=== PATIENT | female | born 1980 | race Caucasian/White ===

== ENCOUNTER → 2016-06-21 | Outpatient (CLI) | payer BC ==
[2016-06-21 09:38] LABS: MEAN CORPUSCULAR HEMOGLOBIN 30.1 pg (27.0-33.0); MEAN CORPUSCULAR HGB CONC 33.6 g/dl (32.0-36.5); MEAN CORPUSCULAR VOLUME 89.7 fl (80.0-96.0); RED CELL DISTRIBUTION WIDTH 12.4 % (11.5-14.5); WHITE BLOOD COUNT 3.6 K/mm3 (4.0-10.0)
[2016-06-21 09:53] LABS: ALBUMIN 3.3 GM/DL (3.2-5.2); ALBUMIN/GLOBULIN RATIO 1.22 (1.00-1.93); ALKALINE PHOSPHATASE 79 U/L (45-117); ALT/SGPT 21 U/L (12-78); ANION GAP 7 MEQ/L (8-16); AST/SGOT 14 U/L (15-37); BILIRUBIN,TOTAL 0.3 MG/DL (0.2-1.0); BLOOD UREA NITROGEN 13 MG/DL (7-18); CALCIUM LEVEL 8.1 MG/DL (8.5-10.1); CARBON DIOXIDE LEVEL 28 MEQ/L (21-32); CHLORIDE LEVEL 105 MEQ/L (98-107); CHOLESTEROL LEVEL 183 MG/DL (<200); CREATININE FOR GFR 0.69 MG/DL (0.55-1.02); GLOMERULAR FILTRATION RATE > 60.0 (>60); GLUCOSE, FASTING 87 MG/DL (70-105); POTASSIUM SERUM 4.8 MEQ/L (3.5-5.1); SODIUM LEVEL 140 MEQ/L (136-145); TRIGLYCERIDES LEVEL 42 MG/DL (<150)
== END ==
LOC: M WUC 08:16
PROVIDERS: ATTEND Nurse Practitioner Family
DX: Z00.00 Encounter for general adult medical examination without abnormal findings (principal)

== ENCOUNTER 2017-01-26 19:34 | Emergency (ER) | payer BC ==
[~2017-01-26] VITALS: Ht 182.9 cm; Wt 86.4 kg
[2017-01-26] MEDS ORDERED: MULTLIQ7 PO (19:45)
[2017-01-26] MEDS ORDERED: DEBL1TAB (19:45)
[2017-01-26] MEDS ORDERED: NS 1,000 ML IV ONE (20:30)
[2017-01-26 20:33] LABS: BASO # 0.1 10^3/uL (0.0-0.2); BASO % 0.7 % (0.0-1.0); EOS # 0.1 10^3/uL (0.0-0.50); EOS % 1.2 % (0.0-3.0); IMMATURE GRANULOCYTE % 0.1 % (0-0); LYMPH # 1.3 10^3/uL (1.5-4.5); LYMPH % 19.1 % (24.0-44.0); MEAN CORPUSCULAR HEMOGLOBIN 29.9 pg (27.0-33.0); MEAN CORPUSCULAR VOLUME 85.6 fl (80.0-96.0); MONO # 0.7 10^3/uL (0.0-0.8); MONO % 10.9 % (0.0-5.0); NEUTROPHILS # 4.6 10^3/uL (1.8-7.7); PLATELET COUNT, AUTOMATED 221 10^3/uL (150-450); WHITE BLOOD COUNT 6.7 10^3/uL (4.0-10.0)
[2017-01-26 20:42] LABS: CONTROL LINE HCG INT CTR LINE PRESENT
[2017-01-26 20:54] LABS: ALBUMIN 3.6 GM/DL (3.2-5.2); ALBUMIN/GLOBULIN RATIO 0.97 (1.00-1.93); ALKALINE PHOSPHATASE 91 U/L (45-117); ALT/SGPT 27 U/L (12-78); ANION GAP 9 MEQ/L (8-16); AST/SGOT 15 U/L (7-37); BILIRUBIN,DIRECT < 0.1 MG/DL (0.0-0.2); BILIRUBIN,TOTAL 0.4 MG/DL (0.2-1.0); BLOOD UREA NITROGEN 13 MG/DL (7-18); CALCIUM LEVEL 8.7 MG/DL (8.5-10.1); CARBON DIOXIDE LEVEL 23 MEQ/L (21-32); CHLORIDE LEVEL 107 MEQ/L (98-107); CREATININE FOR GFR 0.72 MG/DL (0.55-1.02); FREE T4 1.14 NG/DL (0.76-1.46); GLOMERULAR FILTRATION RATE > 60.0 (>60); GLUCOSE, FASTING 93 MG/DL (70-105); POTASSIUM SERUM 3.5 MEQ/L (3.5-5.1); SODIUM LEVEL 139 MEQ/L (136-145); TOTAL PROTEIN 7.3 GM/DL (6.4-8.2)
[2017-01-26] MEDS ORDERED: ISOVUE-370 76% 100ML VIAL (Q9967) As Ordered ONE (21:09)
--- NOTE | 2017-01-26 21:40 | REPUSA ---
CT angiogram of the chest Clinical statement: Chest pain and shortness of breath. Technique: Multiple axial CT images were obtained from the thoracic inlet through the upper abdomen a fter a bolus administration of nonionic intravenous contrast. Coronal and sagittal reconstructions we re also obtained. No comparison is available. Findings: The pulmonary arteries are well-opacified with contrast, with no intraluminal filling defec ts to suggest embolism. The thoracic aorta is unremarkable. Thyroid gland is within normal limits. Th ere is no thoracic lymphadenopathy. There are no pericardial or pleural effusions. There is consolida tion of the left lower lobe. Limited imaging of the upper abdomen is unremarkable. There are no suspi cious osseous lesions. Impression: 1. No evidence of pulmonary embolism. 2. Left lower lobe pneumonia.
[2017-01-26] MEDS ORDERED: AZITHROMYCIN 250 MG TAB PO ONE (21:45)
[2017-01-26] MEDS ORDERED: CEFTRIAXONE SOD 1 GM in APPROPRIATE DILUENT 1 EA IV ONE (21:45)
[2017-01-26] MEDS ORDERED: AZIT-12 PO (22:20)
[2017-01-27 00:09] VITALS: BP 116/79
--- NOTE | 2017-01-27 07:22 | ECGEPIP ---
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
== END 2017-01-27 00:09 | disposition home or self-care (01) ==
LOC: M ED 19:34
DX: J18.9 Pneumonia, unspecified organism (principal); Z88.2 Allergy status to sulfonamides; Z79.899 Other long term (current) drug therapy; Z79.3 Long term (current) use of hormonal contraceptives; Z87.891 Personal history of nicotine dependence
CPT/HCPCS: 71275; 80048; 80076; 82550; 82553; 83880; 84439; 84443; 84703; 85025; 87040; 93005; 93041; 94760; 96374; 99284; Q9967

== ENCOUNTER → 2017-02-07 | Outpatient (CLI) | payer BC ==
[~2017-02-07] MED LIST: AZIT-12 PO; DEBL1TAB; MULTLIQ7 PO
--- NOTE | 2017-02-07 20:11 | REP ---
Clinical: Dyspnea. Pneumonia . Comparison: 01/22/2013 . Technique: PA and lateral. Findings: The mediastinum and cardiac silhouette are normal. The lung kelley are clear and without acute consolidation, effusion, or pneumothorax. The skeletal structures are intact and normal. Impression: 1. No acute cardiopulmonary process. 2. Left lower lobe pneumonia identified on chest CT dated 01/26/2017 has resolved. Signed by Sesar Gutierrez MD 02/07/2017 08:02 P
== END ==
LOC: M RAD 19:46
PROVIDERS: ATTEND Physician Assistant Medical
DX: J18.1 Lobar pneumonia, unspecified organism (principal); R07.9 Chest pain, unspecified

== ENCOUNTER → 2017-02-13 | Outpatient (REF) | payer BC | LOC: M LAB REF 16:50 | DX: Z30.430 Encounter for insertion of intrauterine contraceptive device (principal) | CPT/HCPCS: 87591 ==

== ENCOUNTER 2017-04-02 09:34 | Outpatient (REF) | payer BC ==
[2017-04-05 14:10] LABS: HPV HYBRID CAPTURE II Negative (Negative)
== END 2017-04-03 ==
LOC: M LAB REF 09:34
DX: Z12.4 Encounter for screening for malignant neoplasm of cervix (principal)
CPT/HCPCS: G0123

== ENCOUNTER → 2017-09-05 | Outpatient (CLI) | payer BC, MEDICAID, SELFPAY | LOC: M RAD 14:40 | DX: Z80.3 Family history of malignant neoplasm of breast (principal); N64.4 Mastodynia | CPT/HCPCS: 77066 ==

== ENCOUNTER → 2017-11-07 | Outpatient (CLI) | payer BC ==
[2017-11-07 09:07] LABS: HEMATOCRIT 37.1 % (36.0-47.0); HEMOGLOBIN 12.9 g/dl (12.0-15.5); MEAN CORPUSCULAR HEMOGLOBIN 31.5 pg (27.0-33.0); MEAN CORPUSCULAR HGB CONC 34.8 g/dl (32.0-36.5); MEAN CORPUSCULAR VOLUME 90.5 fl (80.0-96.0); PLATELET COUNT, AUTOMATED 208 10^3/uL (150-450); RED CELL DISTRIBUTION WIDTH 12.3 % (11.5-14.5); WHITE BLOOD COUNT 4.4 10^3/uL (4.0-10.0)
[2017-11-07 09:42] LABS: CONTROL LINE HCG INT CTR LINE PRESENT; HCG, SERUM QUALITATIVE NEGATIVE (NEGATIVE)
[2017-11-07 10:00] LABS: ALBUMIN 3.9 GM/DL (3.2-5.2); ALBUMIN/GLOBULIN RATIO 1.39 (1.00-1.93); ALKALINE PHOSPHATASE 95 U/L (45-117); ALT/SGPT 20 U/L (12-78); ANION GAP 7 MEQ/L (8-16); AST/SGOT 10 U/L (7-37); BILIRUBIN,TOTAL 0.6 MG/DL (0.2-1.0); BLOOD UREA NITROGEN 9 MG/DL (7-18); CALCIUM LEVEL 8.6 MG/DL (8.5-10.1); CARBON DIOXIDE LEVEL 27 MEQ/L (21-32); CHLORIDE LEVEL 108 MEQ/L (98-107); CHOLESTEROL LEVEL 150 MG/DL (<200); CHOLESTEROL RISK RATIO 2.238 (<5); CREATININE FOR GFR 0.65 MG/DL (0.55-1.30); GLOMERULAR FILTRATION RATE > 60.0 (>60); GLUCOSE, FASTING 82 MG/DL (70-100); HDL CHOLESTEROL 67 MG/DL (>40); LDL CHOLESTEROL 71 MG/DL (<100); NON-HDL-C 83 MG/DL; POTASSIUM SERUM 4.4 MEQ/L (3.5-5.1); SODIUM LEVEL 142 MEQ/L (136-145); TOTAL PROTEIN 6.7 GM/DL (6.4-8.2); TRIGLYCERIDES LEVEL 59 MG/DL (<150)
== END ==
LOC: M LAB 08:33
DX: R53.83 Other fatigue (principal)
CPT/HCPCS: 84443

== ENCOUNTER → 2018-07-15 | Outpatient (CLI) | payer BC ==
[2018-07-15 12:27] LABS: BASO # 0.1 10^3/uL (0.0-0.2); BASO % 1.6 % (0.0-1.0); EOS # 0.1 10^3/uL (0.0-0.50); EOS % 1.8 % (0.0-3.0); HEMATOCRIT 39.7 % (36.0-47.0); HEMOGLOBIN 13.4 g/dl (12.0-15.5); LYMPH # 1.4 10^3/uL (1.5-4.5); LYMPH % 34.9 % (24.0-44.0); MEAN CORPUSCULAR HEMOGLOBIN 31.3 pg (27.0-33.0); MEAN CORPUSCULAR HGB CONC 33.8 g/dl (32.0-36.5); MEAN CORPUSCULAR VOLUME 92.8 fl (80.0-96.0); MONO # 0.4 10^3/uL (0.0-0.8); MONO % 9.6 % (0.0-5.0); NEUTROPHILS % 51.8 % (36.0-66.0); PLATELET COUNT, AUTOMATED 202 10^3/uL (150-450); RED BLOOD COUNT 4.28 10^6/uL (4.00-5.40); WHITE BLOOD COUNT 3.9 10^3/uL (4.0-10.0)
[2018-07-15 13:00] LABS: ERYTHROCYTE SEDIMENTATION RATE 6 mm/hr (0-20)
[2018-07-15 13:01] LABS: ALBUMIN 3.7 GM/DL (3.2-5.2); ALT/SGPT 20 U/L (12-78); BILIRUBIN,DIRECT 0.1 MG/DL (0.0-0.2); BILIRUBIN,TOTAL 0.3 MG/DL (0.2-1.0); RHEUMATOID FACTOR QUANT < 10.0 IU/ML (<15.0); TOTAL PROTEIN 6.4 GM/DL (6.4-8.2)
[2018-07-16 14:19] LABS: ANTINUCLEAR ANTIBODIES DIRECT Negative (Negative); SJOGREN'S ANTI SS-A <0.2 AI (0.0-0.9); SJOGREN'S ANTI SS-B <0.2 AI (0.0-0.9)
== END ==
LOC: M LAB 11:42
PROVIDERS: ATTEND Nurse Practitioner
DX: R21 Rash and other nonspecific skin eruption (principal)

== ENCOUNTER 2019-01-08 12:39 | Day surgery (SDC) | payer BC ==
[~2019-01-08] VITALS: Ht 182.9 cm; Wt 88.4 kg
[~2019-01-08 12:39] MED LIST changes: +KETOROLAC 60 MG/2 ML VIAL (J1885) As Ordered ONE; +LIDOCAINE 2% INJ 100 MG/5 ML SDV (FOR ANES.) As Ordered ONE; +LR 1,000 ML IV ONE; +MIDAZOLAM INJ 2 MG/2 ML VIAL (J2250) As Ordered ONE; +MULTCAP PO; +ONDANSETRON 4MG/2ML VIAL (J2405) As Ordered ONE; +PROPOFOL 200 MG/20 ML VIAL As Ordered ONE; +ROCURONIUM BROMIDE 50 MG/5 ML VIAL As Ordered ONE; +SERT-138 PO; +SUGAMMADEX SODIUM 500 MG/5 ML VIAL (BRIDION) As Ordered ONE; +dexameTHASONE 4 MG/ML 1ML VIAL (J1100) As Ordered ONE; +fentaNYL 100 MCG/2 ML INJECTION (J3010) As Ordered ONE
[2019-01-08 13:46] LABS: HEMATOCRIT 42.1 % (36.0-47.0); HEMOGLOBIN 13.8 g/dl (12.0-15.5); MEAN CORPUSCULAR HEMOGLOBIN 30.7 pg (27.0-33.0); MEAN CORPUSCULAR HGB CONC 32.8 g/dl (32.0-36.5); MEAN CORPUSCULAR VOLUME 93.6 fl (80.0-96.0); PLATELET COUNT, AUTOMATED 213 10^3/uL (150-450); WHITE BLOOD COUNT 5.1 10^3/uL (4.0-10.0)
[2019-01-08] MEDS ORDERED: BUPIVACAINE HCL 0.25% 30 ML VIAL As Ordered ONE (14:08)
[2019-01-08] MEDS ORDERED: OXYC1TAB23 PO (14:13)
[2019-01-08] MEDS ORDERED: fentaNYL 100 MCG/2 ML INJECTION (J3010) As Ordered ONE (14:47)
[2019-01-08] MEDS ORDERED: LR 1,000 ML IV SCH ×2 (15:30→16:30)
[2019-01-08] MEDS ORDERED: PERCOCET 5MG/325MG TAB PO PRN ×2 (15:30→16:30)
[2019-01-08] MEDS ORDERED: METOCLOPRAMIDE INJ 10MG/2ML VIAL (J2765) IV PRN (15:30)
[2019-01-08] MEDS ORDERED: ONDANSETRON 4MG/2ML VIAL (J2405) IV PRN (15:30)
[2019-01-08] MEDS ORDERED: fentaNYL 100 MCG/2 ML INJECTION (J3010) IV PRN (15:30)
[2019-01-08 16:40] VITALS: BP 127/69
--- NOTE | 2019-01-11 16:11 | RO ---
DATE OF OPERATION: 01/08/2019 PREOPERATIVE DIAGNOSIS: Undesired fertility. POSTOPERATIVE DIAGNOSIS: Undesired fertility. PROCEDURE: Laparoscopic bilateral salpingectomy. 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 ESTIMATED BLOOD LOSS: Minimal. URINE OUTPUT: 25 mL. FINDINGS: Normal pelvis including the uterus, fallopian tubes and ovaries. Normal upper abdomen. OPERATIVE SUMMARY: The patient was taken to the operating room where general endotracheal anesthesia was induced. She was prepped and draped in the sterile fashion in the dorsal lithotomy position. The bladder was emptied with a catheter. A sponge stick was placed in the vagina to use as a manipulator. A periumbilical incision was made with the scalpel. A Veress needle was placed through this incision while tenting upon the skin of the abdomen. Intraabdominal location of the Veress needle was assessed with the use of a saline filled syringe. A pneumoperitoneum was created. The Veress needle was removed. A 5 mm trocar using Visiport was inserted through this incision. A 5 and 8 mm suprapubic port respectively were placed under direct visualization. Grasping instruments were used to elevate each fallopian tube. A LigaSure device was used to coagulate and incise broad ligament attachments to the fallopian tube. The fallopian tubes were amputated near their origin. Both tubes were removed through the suprapubic port. Pneumoperitoneum was released. All instruments were removed. Sponge, instrument, and needle counts were correct. The skin was closed with #4-0 Monocryl subcuticular sutures. The patient was extubated and went to the recovery room in stable condition.
== END 2019-01-08 16:45 | disposition home or self-care (01) ==
LOC: M SDC 12:39
PROVIDERS: ATTEND Specialist
DX: Z30.2 Encounter for sterilization (principal); F41.9 Anxiety disorder, unspecified; Z79.899 Other long term (current) drug therapy
CPT/HCPCS: 36415; 58661; 81025; 85027; 88302; J1100; J1885; J2250; J2405; J3010

== ENCOUNTER → 2019-04-27 | Outpatient (CLI) | payer BC ==
[~2019-04-27] MED LIST changes: -KETOROLAC 60 MG/2 ML VIAL (J1885) As Ordered ONE; -LIDOCAINE 2% INJ 100 MG/5 ML SDV (FOR ANES.) As Ordered ONE; -LR 1,000 ML IV ONE; -MIDAZOLAM INJ 2 MG/2 ML VIAL (J2250) As Ordered ONE; -ONDANSETRON 4MG/2ML VIAL (J2405) As Ordered ONE; +OXYC1TAB23 PO; -PROPOFOL 200 MG/20 ML VIAL As Ordered ONE; -ROCURONIUM BROMIDE 50 MG/5 ML VIAL As Ordered ONE; -SUGAMMADEX SODIUM 500 MG/5 ML VIAL (BRIDION) As Ordered ONE; -dexameTHASONE 4 MG/ML 1ML VIAL (J1100) As Ordered ONE; -fentaNYL 100 MCG/2 ML INJECTION (J3010) As Ordered ONE
[2019-04-27 12:47] LABS: HEMATOCRIT 42.7 % (36.0-47.0); HEMOGLOBIN 13.9 g/dl (12.0-15.5); MEAN CORPUSCULAR HEMOGLOBIN 30.1 pg (27.0-33.0); MEAN CORPUSCULAR HGB CONC 32.6 g/dl (32.0-36.5); MEAN CORPUSCULAR VOLUME 92.4 fl (80.0-96.0); PLATELET COUNT, AUTOMATED 241 10^3/uL (150-450); RED BLOOD COUNT 4.62 10^6/uL (4.00-5.40); WHITE BLOOD COUNT 4.3 10^3/uL (4.0-10.0)
[2019-04-27 13:03] LABS: ALT/SGPT 18 U/L (12-78); BILIRUBIN,TOTAL 0.6 MG/DL (0.2-1.0); BLOOD UREA NITROGEN 10 MG/DL (7-18); CARBON DIOXIDE LEVEL 29 MEQ/L (21-32); CHLORIDE LEVEL 107 MEQ/L (98-107); CREATININE FOR GFR 0.66 MG/DL (0.55-1.30); FOLATE 20.8 NG/ML; GLOMERULAR FILTRATION RATE > 60.0 (>60); GLUCOSE, FASTING 91 MG/DL (70-100); POTASSIUM SERUM 4.7 MEQ/L (3.5-5.1); SODIUM LEVEL 140 MEQ/L (136-145); TOTAL 25(OH) VITAMIN D 34.6 NG/ML (30.0-100.0); TOTAL PROTEIN 6.5 GM/DL (6.4-8.2); VITAMIN B12 LEVEL 896 PG/ML
== END ==
LOC: M WUC 10:01
PROVIDERS: ATTEND Family Medicine
DX: R53.83 Other fatigue (principal); Z78.9 Other specified health status

== ENCOUNTER → 2019-05-05 | Outpatient (REF) | payer BC ==
[2019-05-05 15:41] LABS: CHLAMYDIA DNA AMPLIFICATION NEGATIVE (NEGATIVE); GC DNA AMPLIFICATION NEGATIVE (NEGATIVE)
== END ==
LOC: M SFHCWAGY 13:01
PROVIDERS: ATTEND Specialist
DX: Z20.2 Contact with and (suspected) exposure to infections with a predominantly sexual mode of transmission (principal)
CPT/HCPCS: 87491; 87591; 87624; G0123

== ENCOUNTER → 2019-05-05 | Outpatient (CLI) | payer BC ==
--- NOTE | 2019-05-05 11:08 | REPMRS ---
Patient History The patient states she had a clinical breast exam in April 2019. Family history of breast cancer at age 38 in mother, breast cancer at age 80 in paternal grandmother. Took hormonal contraceptives for 16 years. 3D TOMOSYNTHESIS WAS PERFORMED. Digital Woman Screen Mammo: May 05, 2019 - Exam #: [id number] Bilateral CC and MLO view(s) were taken. Technologist: RT Maggy Prior study comparison: September 05, 2017, digital mammo diagnostic bilateral, performed at [facility]. October 02, 2015, bilateral digital mammo screening bilat, performed at [facility]. FINDINGS: The breast tissue is heterogeneously dense. This may lower the sensitivity of mammography. There has been no change in the appearance of the mammogram from the prior studies. There is a moderate amount of residual fibroglandular tissue which is fairly symmetric. There is no interval development of dominant mass, areas of architectural distortion, or clustered microcalcification typical of malignancy. Assessment: BI-RADS/ACR category 1 mammogram. Negative Mammogram. Recommendation Routine screening mammogram in 1 year (for women over age 40). This mammogram was interpreted with the aid of an FDA-approved computer-aided dectection system. THE LIFETIME RISK OF BREAST CANCER IS 27.0%, THEREFORE SUPPLEMENTAL SCREENING MRI OF THE BREASTS IS RECOMMENDED IN 6 MONTHS. Electronically Signed By: Neo Solo MD 05/05/19 [id number]
== END ==
LOC: M WHC 09:55
PROVIDERS: ATTEND Specialist
DX: Z12.31 Encounter for screening mammogram for malignant neoplasm of breast (principal)

== ENCOUNTER → 2020-05-09 | Outpatient (CLI) | payer BC ==
[2020-05-09 10:50] LABS: HEMATOCRIT 41.8 % (36.0-47.0); HEMOGLOBIN 13.8 g/dl (12.0-15.5); MEAN CORPUSCULAR HEMOGLOBIN 30.2 pg (27.0-33.0); MEAN CORPUSCULAR VOLUME 91.5 fl (80.0-96.0); PLATELET COUNT, AUTOMATED 222 10^3/uL (150-450); RED BLOOD COUNT 4.57 10^6/uL (4.00-5.40); WHITE BLOOD COUNT 4.5 10^3/uL (4.0-10.0)
[2020-05-09 11:37] LABS: ALBUMIN 3.9 GM/DL (3.2-5.2); ALT/SGPT 20 U/L (12-78); BILIRUBIN,TOTAL 0.3 MG/DL (0.2-1.0); BLOOD UREA NITROGEN 11 MG/DL (7-18); CARBON DIOXIDE LEVEL 30 MEQ/L (21-32); CHLORIDE LEVEL 108 MEQ/L (98-107); CHOLESTEROL LEVEL 195 MG/DL (<200); CHOLESTEROL RISK RATIO 2.532 (<5); CREATININE FOR GFR 0.68 MG/DL (0.55-1.30); FREE T3 3.8 PG/ML (2.2-4.0); FREE T4 1.09 NG/DL (0.76-1.46); GLOMERULAR FILTRATION RATE > 60.0 (>60); GLUCOSE, FASTING 92 MG/DL (70-100); HDL CHOLESTEROL 77 MG/DL (>40); LDL CHOLESTEROL 109 MG/DL (<100); NON-HDL-C 118 MG/DL; SODIUM LEVEL 140 MEQ/L (136-145); TOTAL 25(OH) VITAMIN D 37.3 NG/ML (30.0-100.0); TOTAL PROTEIN 6.5 GM/DL (6.4-8.2); TRIGLYCERIDES LEVEL 43 MG/DL (<150)
== END ==
LOC: M WUC 08:12
PROVIDERS: ATTEND Registered Nurse
DX: F32.9 Major depressive disorder, single episode, unspecified (principal)

== ENCOUNTER 2020-05-15 19:37 | Emergency (ER) | payer BC ==
[~2020-05-15] VITALS: Ht 182.9 cm; Wt 97.3 kg
[2020-05-15] MEDS ORDERED: SERT50TA29 (19:44)
--- NOTE | 2020-05-15 20:11 | ECGEPIP ---
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
[2020-05-15 20:20] LABS: BASO # 0.1 10^3/uL (0.0-0.2); BASO % 0.6 % (0.0-1.0); EOS # 0.1 10^3/uL (0.0-0.5); HEMATOCRIT 41.5 % (36.0-47.0); HEMOGLOBIN 14.1 g/dl (12.0-15.5); LYMPH # 2.2 10^3/uL (1.5-5.0); LYMPH % 25.7 % (24.0-44.0); MEAN CORPUSCULAR HEMOGLOBIN 30.3 pg (27.0-33.0); MEAN CORPUSCULAR VOLUME 89.2 fl (80.0-96.0); MONO # 0.6 10^3/uL (0.0-0.8); MONO % 6.5 % (2.0-8.0); NEUTROPHILS # 5.8 10^3/uL (1.5-8.5); NEUTROPHILS % 65.9 % (36.0-66.0); PLATELET COUNT, AUTOMATED 236 10^3/uL (150-450); RED BLOOD COUNT 4.65 10^6/uL (4.00-5.40); WHITE BLOOD COUNT 8.7 10^3/uL (4.0-10.0)
--- NOTE | 2020-05-15 20:22 | REPVR ---
PROCEDURE INFORMATION: Exam: XR Chest Exam date and time: 05/15/2020 8:04 PM Age: 40 years old Clinical indication: Chest pain; Type not specified TECHNIQUE: Imaging protocol: XR of the chest Views: 2 views. COMPARISON: CR Chest, 2 view PA, Lat 02/07/2017 7:57 PM FINDINGS: Lungs: Unremarkable. No consolidation. Pleural spaces: Unremarkable. No pleural effusion. No pneumothorax. Heart/Mediastinum: Unremarkable. No cardiomegaly. Bones/joints: Unremarkable. IMPRESSION: No acute findings. Electronically signed by: Edward Lozano On 05/15/2020 20:22:23 PM
[2020-05-15 20:45] LABS: BLOOD UREA NITROGEN 14 MG/DL (7-18); CARBON DIOXIDE LEVEL 30 MEQ/L (21-32); CHLORIDE LEVEL 108 MEQ/L (98-107); CK-MB VALUE MASS < 1.0 NG/ML (<3.6); CPK CREATINE PHOSPHOKINASE 84 U/L (26-192); CREATININE FOR GFR 0.64 MG/DL (0.55-1.30); GLOMERULAR FILTRATION RATE > 60.0 (>60); GLUCOSE, FASTING 114 MG/DL (70-100); MB/CK RELATIVE INDEX 1.19 (< OR =4); POTASSIUM SERUM 3.9 MEQ/L (3.5-5.1); SODIUM LEVEL 142 MEQ/L (136-145); TROPONIN I < 0.02 NG/ML (< 0.10)
[2020-05-16 02:07] VITALS: BP 115/78
[2020-05-16 02:08] LABS: CK-MB VALUE MASS < 1.0 NG/ML (<3.6); CPK CREATINE PHOSPHOKINASE 67 U/L (26-192); MB/CK RELATIVE INDEX 1.49 (< OR =4); TROPONIN I < 0.02 NG/ML (< 0.10)
--- NOTE | 2020-05-16 05:13 | ECGEPIP ---
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
== END 2020-05-16 03:13 | disposition home or self-care (01) ==
LOC: M ED 19:37
DX: R07.9 Chest pain, unspecified (principal); F17.200 Nicotine dependence, unspecified, uncomplicated; Z88.1 Allergy status to other antibiotic agents; Z88.2 Allergy status to sulfonamides

== ENCOUNTER → 2020-05-26 | Outpatient (CLI) | payer BC ==
[~2020-05-26] MED LIST changes: +SERT50TA29
--- NOTE | 2020-05-26 13:47 | REPMRS ---
Patient History The patient states she had a clinical breast exam in 04/2020 Family history of breast cancer at age 38 in mother, breast cancer at age 80 in paternal grandmother. Took hormonal contraceptives for 16 years. 3D TOMOSYNTHESIS WAS PERFORMED. [place] breast density b. Digital Woman Screen Mammo: May 26, 2020 - Exam #: [id number] Bilateral CC and MLO view(s) were taken. Technologist: Mery Callejas, Technologist Prior study comparison: May 05, 2019, bilateral digital woman screen mammo performed at [facility]. September 05, 2017, digital mammo diagnostic bilateral, performed at [facility]. FINDINGS: There are scattered fibroglandular densities. There has been no change in the appearance of the mammogram from the prior studies. There is a mild amount of residual fibroglandular tissue which is fairly symmetric. There is no interval development of dominant mass, architectural distortion, or clustered microcalcification suggestive of malignancy. Assessment: BI-RADS/ACR category 1 mammogram. Negative Mammogram. Recommendation Routine screening mammogram in 1 year (for women over age 40). This mammogram was interpreted with the aid of an FDA-approved computer-aided dectection system. THE LIFETIME RISK OF BREAST CANCER IS 26.8%, THEREFORE SUPPLEMENTAL SCREENING MRI OF THE BREASTS IS RECOMMENDED IN 6 MONTHS. Electronically Signed By: Neo Solo MD 05/26/20 [id number]
== END ==
LOC: M WHC 12:51
PROVIDERS: ATTEND Registered Nurse
DX: Z12.31 Encounter for screening mammogram for malignant neoplasm of breast (principal)

== ENCOUNTER → 2021-04-19 | Outpatient (REF) | payer BC ==
[2021-04-19 14:36] LABS: THYROID STIMULATING HORMONE 0.944 uIU/ML (0.358-3.740)
[2021-04-19 18:22] LABS: FREE T4 1.35 NG/DL (0.76-1.46)
== END ==
LOC: M WUC 12:47
PROVIDERS: ATTEND Registered Nurse
DX: E66.9 Obesity, unspecified (principal)

== ENCOUNTER → 2021-07-18 | Outpatient (CLI) | payer BC ==
[2021-07-18 09:55] LABS: HEMATOCRIT 41.6 % (36.0-47.0); HEMOGLOBIN 13.8 g/dl (12.0-15.5); MEAN CORPUSCULAR HGB CONC 33.2 g/dl (32.0-36.5); MEAN CORPUSCULAR VOLUME 90.4 fl (80.0-96.0); PLATELET COUNT, AUTOMATED 247 10^3/uL (150-450); WHITE BLOOD COUNT 5.4 10^3/uL (4.0-10.0)
[2021-07-18 10:42] LABS: ALBUMIN 3.7 GM/DL (3.2-5.2); ALT/SGPT 18 U/L (12-78); BILIRUBIN,TOTAL 0.4 MG/DL (0.2-1.0); BLOOD UREA NITROGEN 15 MG/DL (7-18); CALCIUM LEVEL 9.4 MG/DL (8.5-10.1); CARBON DIOXIDE LEVEL 28 MEQ/L (21-32); CHLORIDE LEVEL 110 MEQ/L (98-107); CHOLESTEROL LEVEL 176 MG/DL (<200); CHOLESTEROL RISK RATIO 2.478 (<5); CREATININE FOR GFR 0.74 MG/DL (0.55-1.30); GLOMERULAR FILTRATION RATE > 60.0 (>60); GLUCOSE, FASTING 110 MG/DL (70-100); HDL CHOLESTEROL 71 MG/DL (>40); LDL CHOLESTEROL 94 MG/DL (<100); NON-HDL-C 105 MG/DL; POTASSIUM SERUM 4.6 MEQ/L (3.5-5.1); SODIUM LEVEL 142 MEQ/L (136-145); TOTAL PROTEIN 6.5 GM/DL (6.4-8.2); TRIGLYCERIDES LEVEL 55 MG/DL (<150)
== END ==
LOC: M WUC 08:13
PROVIDERS: ATTEND Registered Nurse
DX: E66.9 Obesity, unspecified (principal)

== ENCOUNTER 2021-09-16 08:55 | Emergency (ER) | payer BC ==
[~2021-09-16] VITALS: Ht 182.9 cm; Wt 99.2 kg
[2021-09-16] MEDS ORDERED: VENL-115 PO (09:02)
[2021-09-16] MEDS ORDERED: VENL-102 PO (09:02)
[2021-09-16] MEDS ORDERED: NS 1,000 ML IV ONE (09:35)
[2021-09-16 10:10] LABS: BASO # 0.1 10^3/uL (0.0-0.2); BASO % 0.8 % (0.0-1.0); EOS # 0.2 10^3/uL (0.0-0.5); EOS % 2.9 % (0.0-3.0); HEMATOCRIT 42.9 % (36.0-47.0); HEMOGLOBIN 14.6 g/dl (12.0-15.5); LYMPH # 1.7 10^3/uL (1.5-5.0); LYMPH % 28.7 % (24.0-44.0); MEAN CORPUSCULAR HEMOGLOBIN 30.1 pg (27.0-33.0); MEAN CORPUSCULAR VOLUME 88.5 fl (80.0-96.0); MONO # 0.5 10^3/uL (0.0-0.8); MONO % 8.9 % (2.0-8.0); NEUTROPHILS # 3.5 10^3/uL (1.5-8.5); NEUTROPHILS % 58.5 % (36.0-66.0); PLATELET COUNT, AUTOMATED 282 10^3/uL (150-450); RED BLOOD COUNT 4.85 10^6/uL (4.00-5.40)
[2021-09-16 10:45] LABS: ALBUMIN 3.7 GM/DL (3.2-5.2); ALT/SGPT 18 U/L (12-78); BILIRUBIN,DIRECT < 0.1 MG/DL (0.0-0.2); BILIRUBIN,TOTAL 0.4 MG/DL (0.2-1.0); LIPASE 149 U/L (73-393); TOTAL PROTEIN 7.2 GM/DL (6.4-8.2)
[2021-09-16 11:48] VITALS: BP 122/75
== END 2021-09-16 11:40 | disposition home or self-care (01) ==
LOC: M ED 08:55
DX: K80.20 Calculus of gallbladder without cholecystitis without obstruction (principal); F41.9 Anxiety disorder, unspecified; Z88.1 Allergy status to other antibiotic agents; Z88.2 Allergy status to sulfonamides; F17.200 Nicotine dependence, unspecified, uncomplicated; Z79.899 Other long term (current) drug therapy

== ENCOUNTER → 2021-11-11 | Outpatient (CLI) | payer BC ==
[~2021-11-11] MED LIST changes: +VENL-102 PO; +VENL-115 PO
== END ==
LOC: M LABSMTC 11:24
PROVIDERS: ATTEND Anesthesiology
DX: Z01.812 Encounter for preprocedural laboratory examination (principal)

== ENCOUNTER 2022-04-03 13:57 | Emergency (ER) | payer BC ==
[~2022-04-03] VITALS: Ht 182.9 cm; Wt 106.1 kg
[2022-04-03] MEDS ORDERED: IBUP200C25 PO (15:56)
[2022-04-03] MEDS ORDERED: VENL150C43 (15:56)
[2022-04-03 17:22] VITALS: BP 115/80
== END 2022-04-03 17:23 | disposition home or self-care (01) ==
LOC: M ED 13:57
DX: S06.0X0A Concussion without loss of consciousness, initial encounter (principal); S00.93XA Contusion of unspecified part of head, initial encounter; S16.1XXA Strain of muscle, fascia and tendon at neck level, initial encounter; W22.8XXA Striking against or struck by other objects, initial encounter; Y92.099 Unspecified place in other non-institutional residence as the place of occurrence of the external cause; F41.9 Anxiety disorder, unspecified; F17.200 Nicotine dependence, unspecified, uncomplicated; Z88.2 Allergy status to sulfonamides

== ENCOUNTER → 2022-09-23 | Outpatient (CLI) | payer BC ==
[~2022-09-23] MED LIST changes: +IBUP200C25 PO; +VENL150C43
== END ==
LOC: M WHC 10:24
PROVIDERS: ATTEND Registered Nurse
DX: Z12.31 Encounter for screening mammogram for malignant neoplasm of breast (principal)

== ENCOUNTER → 2024-04-29 | Outpatient (CLI) | payer BC ==
[~2024-04-29] MED LIST changes: +ALPR0.25; +ERGO500029
== END ==
LOC: M WHC 13:12
PROVIDERS: ATTEND Registered Nurse
DX: Z12.31 Encounter for screening mammogram for malignant neoplasm of breast (principal)